=== PATIENT | female | born 1985 | race Caucasian/White ===

== ENCOUNTER 2021-02-10 13:52 | Emergency (ER) | payer BC ==
[~2021-02-10] VITALS: Ht 154.9 cm; Wt 86.4 kg
[~2021-02-10 13:52] MED LIST: MACROBID 1100 MG/CAP PO; NEXIUM 40MG40 MG PEG; NO HOME MEDICATIONS
[2021-02-10 14:03] VITALS: TEMP 98.4
[2021-02-10 14:38] LABS: COLLECTION METHOD CLEAN CATCH
[2021-02-10 14:45] LABS: PH 6 (5-8); SQUAMOUS EPITHELIAL 0-2 /hpf; URINE APPEARANCE Clear; URINE BACTERIA Rare /hpf; URINE BILIRUBIN Negative (NEGATIVE); URINE BLOOD 1+ (NEGATIVE); URINE COLOR Amber; URINE GLUCOSE Negative (NEGATIVE); URINE KETONE Trace (NEGATIVE); URINE LEUKOCYTE ESTERASE Negative (NEGATIVE); URINE NITRATE Negative (NEGATIVE); URINE PROTEIN(semi-quant) Negative (NEGATIVE); URINE RBC 0-2 /hpf; URINE UROBILINOGEN Negative (NEGATIVE)
[2021-02-10 14:51] LABS: BASO % 0.3 % (0.0-2.0); EOS # 0.1 (0.0-0.7); EOS % 1.2 % (0-4.0); GRAN # 5.7 (1.4-6.5); GRAN % 66.2 % (42.2-75.2); HEMATOCRIT 45.7 % (37.0-47.0); HEMOGLOBIN 15.3 g/dl (12.5-16.0); LYMPH # 1.9 (1.2-3.4); MEAN CELL VOLUME 87 fl (80.0-100.0); MEAN CORPUSCULAR HEMOGLOBIN 29 pg (27.0-31.0); MEAN CORPUSCULAR HGB CONC 34 g/dl (33.0-37.0); MEAN PLATELET VOLUME 10.1 fl (7.4-10.4); MONO # 0.8 (0.1-0.6); MONO % 9.7 % (1.7-9.3); PLATELET COUNT 309 K/mm3 (130-400); RED BLOOD COUNT 5.25 M/mm3 (4.10-5.30); REDCELL DISTRIBUTION WIDTH-CV 13.6 % (11.5-14.5)
[2021-02-10 15:04] LABS: ALBUMIN 4.9 gm/dL (3.5-5.0); BILIRUBIN,TOTAL 7.5 mg/dL (0.0-1.0); C-REACTIVE PROTEIN 5.5 mg/dL (0.0-0.9); CALCIUM 9.6 mg/dL (8.4-10.2); CREATININE, serum 0.5 (0.52-1.25); POTASSIUM 3.6 mmol/L (3.4-5.0); TOTAL PROTEIN 10.4 gm/dL (6.4-8.2)
[2021-02-10 16:17] VITALS: BP 128/75; PULSE 88
== END 2021-02-10 16:17 | disposition home or self-care (01) ==
LOC: COL.ER 13:52
PROVIDERS: Family Medicine
DX: K83.1 Obstruction of bile duct (principal); Z90.49 Acquired absence of other specified parts of digestive tract
CPT/HCPCS: J7120

== ENCOUNTER 2021-02-12 09:40 | Day surgery (SDC) | payer BC ==
[2021-02-12] VITALS (7 sets, daily range): BP systolic 114–123; BP diastolic 65–85; PULSE 60–94; TEMP 97.3–97.7
[~2021-02-12] VITALS: Ht 154.9 cm; Wt 87.0 kg
--- NOTE | 2021-02-12 12:20 | NUR ---
1205 PATIENT ARRIVES TO [facility] VIA CART. PATIENT AMBULATED TO CHAIR WITH SBA. VSS. REPORT AND CARE OF PATIENT RECEIVED FROM LAUREN PEACOCK. 1215 DR. MERAZ IN ROOM SPEAKING WITH PATIENT AND PATIENT'S REGARDING FINDINGS AND PROCEDURE.
--- NOTE | 2021-02-12 13:14 | NUR ---
1300 PATIENT REQUESTS WATER AND JELLO. TAKING BOTH PO. WILL MONITOR.
--- NOTE | 2021-02-12 13:47 | NUR ---
6138 PATIENT TOLERATED JELLO AND WATER WELL. D/C ISTRUCTIONS GIVEN TO PATIENT AND PATIENT'S VERBALLY AND WRITTEN. PATIENT VERBALIZED UNDERSTANDING. QUESTIONS INVITED AND ANSWERED.
--- NOTE | 2021-02-12 14:05 | NUR ---
1400 PATIENT ALERT. IV DISCONTINUED. CATH INTACT. TOLERATED WELL. PATIENT UP GETTING DRESSED.
--- NOTE | 2021-02-12 14:16 | NUR ---
1410 PATIENT D/C'D TO POV WITH VIA W/C.
== END 2021-02-12 14:10 | disposition home or self-care (01) ==
LOC: SDCO 09:40
DX: K83.1 Obstruction of bile duct (principal); K31.89 Other diseases of stomach and duodenum; R94.5 Abnormal results of liver function studies; F41.9 Anxiety disorder, unspecified; Z90.49 Acquired absence of other specified parts of digestive tract; Z79.899 Other long term (current) drug therapy
CPT/HCPCS: C1727; C1769; C2625; J2704; J7120; Q9967

== ENCOUNTER 2021-12-25 11:57 | Day surgery (SDC) | payer BC ==
[~2021-12-25] VITALS: Ht 154.9 cm; Wt 88.4 kg
[2021-12-25] MEDS ORDERED: LEVAQUIN 5500 MG/TA1 PO (13:07)
[2021-12-25 13:12] VITALS: BP 116/76; PULSE 78; TEMP 98.3
[2021-12-25 14:40] VITALS: BP 118/66; PULSE 73; TEMP 97.6
--- NOTE | 2021-12-25 14:40 | NUR ---
RECEIVED PT FROM ENDO RN. RECEIVED REPORT. ORIENTED PT TO ROOM AND CALL LIGHT. PT DENIES ANY PAIN AT THIS TIME. DISCUSSED PLAN OF CARE FOR DISCHARGE WITH PT. WILL CONTINUE TO MONITOR.
[2021-12-25 14:55] VITALS: BP 109/58; PULSE 68
--- NOTE | 2021-12-25 14:55 | NUR ---
PT CONTINUES TO DENY ANY PAIN. PT TOLERATING APPLE JUICE AND PUDDING. WILL CONTINUE TO MONITOR PT.
[2021-12-25 15:10] VITALS: BP 112/64; PULSE 67
--- NOTE | 2021-12-25 15:10 | NUR ---
PT TOLERATING PO WITHOUT DIFFICULTY. PT CONTINUES TO DENY ANY PAIN. WILL CONTINUE TO MONITOR.
[2021-12-25 15:25] VITALS: BP 116/70; PULSE 67
--- NOTE | 2021-12-25 15:25 | NUR ---
VSS. PT STATES SHE IS READY FOR DISCHARGE. CONTINUES TO DENY ANY PAIN.
--- NOTE | 2021-12-25 15:30 | NUR ---
IV DC'D. DISCHARGE EDUCATION COMPLETED WITH PT AND HER . ALL QUESTIONS ANSWERED. PT VERBALIZED UNDERSTANDING OF HOME AND FOLLOW UP CARE. DISCHARGE PAPERWORK GIVEN TO PT'S .
--- NOTE | 2021-12-25 15:45 | NUR ---
PT OFF UNIT PER WHEELCHAIR. PT DISCHARGE TO HOME WITH PER PERSONAL VEHICLE.
== END 2021-12-25 15:45 | disposition home or self-care (01) ==
LOC: SDCO 11:57
DX: K83.1 Obstruction of bile duct (principal); K83.09 Other cholangitis; K31.89 Other diseases of stomach and duodenum; K83.8 Other specified diseases of biliary tract; R50.9 Fever, unspecified; R17 Unspecified jaundice; Z79.899 Other long term (current) drug therapy; Z90.49 Acquired absence of other specified parts of digestive tract
CPT/HCPCS: C1769; J2704; J7120; Q9967